=== PATIENT | female | born 1995 ===

== ENCOUNTER 2022-06-13 13:15 | Inpatient (IN) | payer OTHER ==
[~2022-06-13] VITALS: Ht 152.4 cm; Wt 3.2 kg
[2022-06-26] MEDS ORDERED: PRENATAL TABLE1 EAC5 PO (04:56)
== END 2022-06-28 16:37 | disposition home or self-care (01) | DRG 788 ==
LOC: OB/GYN 06-24 13:15 → LDR 06-26 04:33 → O/R 06-26 08:55 → OB/GYN 06-26 09:35
PROVIDERS: ADMIT Obstetrics & Gynecology; ATTEND Obstetrics & Gynecology
PROC: 4A1HXCZ Monitoring of Products of Conception, Cardiac Rate, External Approach (ICD-10-PCS; 2022-06-26)
PROC: 10D00Z1 Extraction of Products of Conception, Low, Open Approach (ICD-10-PCS; principal; 2022-06-26 07:00)
DX: O36.8330 Maternal care for abnormalities of the fetal heart rate or rhythm, third trimester, not applicable or unspecified (principal); O69.81X0 Labor and delivery complicated by cord around neck, without compression, not applicable or unspecified; Z3A.40 40 weeks gestation of pregnancy; Z37.0 Single live birth; Z20.822 Contact with and (suspected) exposure to COVID-19